=== PATIENT | male | born 1960 | race Hispanic/Latino ===

== ENCOUNTER 2017-06-11 11:07 | Inpatient (IN) | payer MEDICARE, BC ==
--- NOTE | 2017-06-11 12:41 | ED PDOC ---
HPI: Psych/Substance Abuse Time Seen by Provider: 06/11/17 11:24 Chief Complaint (Nursing): Psychiatric Evaluation Chief Complaint (Provider): Psychiatric Evaluation History Per: Patient, EMS History/Exam Limitations: no limitations Onset/Duration Of Symptoms: Persistent Current Symptoms Are (Timing): Still Present Additional Complaint(s): 57 year old male with medical history of CVA, presents to the emergency department for medical clearance to adult psych unit to evaluation depression status post recent cardiac surgery. Patient denied any chest pain, shortness of breath, fever, chills, cough, audio/visual hallucinations, suicidal or homicidal ideation. PMD: Marzena Dudley MD Past Medical History Reviewed: Historical Data, Nursing Documentation, Vital Signs Vital Signs: Last Vital Signs Temp 97.3 F L 06/11/17 11:10 Pulse 79 06/11/17 11:10 Resp 20 06/11/17 11:10 BP 91/58 L 06/11/17 11:10 Pulse Ox 95 06/11/17 11:10 - Medical History PMH: CVA, Depression, Malignancy (stomach CA) - Surgical History Surgical History: Cholecystectomy Other surgeries: cardiac - Family History Family History: States: Unknown Family Hx - Social History Current smoker - smoking cessation education provided: No Ex-Smoker (has not smoked in the last 12 months): No Alcohol: None Drugs: Denies - Home Medications Home Medications: Ambulatory Orders Medication Instructions Recorded Amiodarone [Cordarone] 200 mg PO DAILY 06/11/17 Ascorbic Acid [Vitamin C 250 mg 250 mg PO DAILY 06/11/17 Tab] Famotidine [Pepcid] 20 mg PO Q12 06/11/17 Furosemide [Lasix] 20 mg PO DAILY 06/11/17 Gabapentin [Neurontin] 100 mg PO Q8 06/11/17 Iron Ag,Ps/C/Fa6/B12/Zn/SA/Sto 1 tab PO DAILY 06/11/17 [Niferex Tablet] Metoprolol Tartrate [Lopressor] 12.5 mg PO Q12 06/11/17 Pravastatin Sodium [Pravachol] 40 mg PO HS 06/11/17 Sennosides [Senna Concentrate] 8.6 mg PO HS 06/11/17 Sertraline [Zoloft] 100 mg PO Q12 06/11/17 Tamsulosin [Flomax] 0.4 mg PO HS 06/11/17 - Allergies Allergies/Adverse Reactions: Allergies Allergy/AdvReac Type Severity Reaction Status Date / Time No Known Allergies Allergy Verified 06/11/17 11:10 Review of Systems ROS Statement: Except As Marked, All Systems Reviewed And Found Negative Constitutional: Negative for: Fever, Chills Cardiovascular: Negative for: Chest Pain Respiratory: Negative for: Cough, Shortness of Breath Psych: Positive for: Depression. Negative for: Suicidal ideation (or HI ideation), Other (audio or visual hallucination) Physical Exam - Reviewed Nursing Documentation Reviewed: Yes Vital Signs Reviewed: Yes - Physical Exam Appears: Positive for: Non-toxic, No Acute Distress Head Exam: Positive for: ATRAUMATIC, NORMAL INSPECTION, NORMOCEPHALIC Cardiovascular/Chest: Positive for: Regular Rate, Rhythm, Other (suture in place noted on sterum without any signs of infection) Respiratory: Positive for: Normal Breath Sounds. Negative for: Decreased Breath Sounds, Respiratory Distress Gastrointestinal/Abdominal: Positive for: Normal Exam, Soft. Negative for: Tenderness Extremity: Positive for: Other (atrophy of the lower extremities). Negative for : Normal ROM Neurologic/Psych: Positive for: Alert, Oriented - Laboratory Results Result Diagrams: 06/11/17 13:07 06/11/17 13:07 - ECG O2 Sat by Pulse Oximetry: 95 (RA) Pulse Ox Interpretation: Normal Medical Decision Making Medical Decision Making: Initial Impression: Depression Initial Plan: * EKG * Acetaminophen * Alcohol serum * CMP * Drug screen, urine * Salicylate * CBC * PTT * PT * CXR * UA Time: 1306 --EKG: NSR at 83 BMP. Left axis deviation with first degree AV block. Time: 1312 --CXR FINDINGS: LUNGS: The lungs are well inflated and clear. PLEURA: There is blunting of the left costophrenic angle. No large right pleural effusion. No pneumothorax. CARDIOVASCULAR: There mild cardiomegaly. Status post CABG. Status post aortic valve replacement. OSSEOUS STRUCTURES: No significant abnormalities. VISUALIZED UPPER ABDOMEN: Normal. OTHER FINDINGS: None. IMPRESSION: Blunting of the left costophrenic angle may represent pleural effusion or thickening. No acute findings. Scribe Attestation: Documented by Beverly Ramos, acting as a scribe for Jose Valerio DO. Provider Scribe Attestation: All medical record entries made by the Scribe were at my direction and personally dictated by me. I have reviewed the chart and agree that the record accurately reflects my personal performance of the history, physical exam, medical decision making, and the department course for this patient. I have also personally directed, reviewed, and agree with the discharge instructions and disposition. Spoke to cardiology at [facility] and reviewed patient's recent cardiac surgery. Patient to be on coumadin therapy. Patient is cleared for geropsych admission and medical consult is recommended. Disposition - Clinical Impression Clinical Impression: Depression - Disposition Disposition Time: 13:50 Condition: STABLE
[2017-06-11 13:14] LABS: BASO # 0.1 K/uL (0.0-0.2); BASO % 1.3 % (0.0-2.0); EOS # 0.3 K/uL (0.0-0.7); EOS % 5.3 % (0.0-4.0); HEMOGLOBIN 10.1 g/dL (12.0-18.0); LYMPH # 0.3 K/uL (1.0-4.3); MEAN CELL VOLUME 81.5 fl (80.0-94.0); MEAN CORPUSCULAR HEMOGLOBIN 27.2 pg (27.0-31.0); MEAN CORPUSCULAR HGB CONC 33.4 g/dL (33.0-37.0); MEAN PLATELET VOLUME 8.1 fl (7.2-11.7); MONO # 0.4 K/uL (0.0-0.8); MONO % 7.8 % (0.0-10.0); NEUT # 4.3 K/uL (1.8-7.0); NEUT % 79.6 % (50.0-75.0); NRBC % 0.1 % (0.0-0.0); PLATELET COUNT 293 K/uL (130-400); RED CELL DISTRIBUTION WIDTH 18.4 % (11.5-14.5); WHITE BLOOD COUNT 5.4 K/uL (4.8-10.8)
--- NOTE | 2017-06-11 13:14 | RAD ---
HISTORY: psych eval COMPARISON: No prior. FINDINGS: LUNGS: The lungs are well inflated and clear. PLEURA: There is blunting of the left costophrenic angle. No large right pleural effusion. No pneumothorax. CARDIOVASCULAR: There mild cardiomegaly. Status post CABG. Status post aortic valve replacement. OSSEOUS STRUCTURES: No significant abnormalities. VISUALIZED UPPER ABDOMEN: Normal. OTHER FINDINGS: None. IMPRESSION: Blunting of the left costophrenic angle may represent pleural effusion or thickening. No acute findings.
[2017-06-11 13:22] LABS: INR 1.6 (0.9-1.2); PARTIAL THROMBOPLASTIN TIME 36.5 Seconds (25.6-37.1); PROTHROMBIN TIME 17.4 Seconds (9.8-13.1)
[2017-06-11 13:24] LABS: ALB/GLOB RATIO 0.7 (1.0-2.1); ALBUMIN 2.9 g/dL (3.5-5.0); ALT/SGPT 82 U/L (21-72); AST/SGOT 67 U/L (17-59); BLOOD UREA NITROGEN 10 mg/dl (9-20); CALCIUM 8.9 mg/dL (8.4-10.2); GFR AFRICAN-AMERICAN > 60; GFR NON-AFRICAN AMERICAN > 60
[2017-06-11 13:34] LABS: ACETAMINOPHEN < 10.0 ug/ml (10.0-30.0); SALICYLATE < 1.0 mg/dl
[2017-06-11 14:22] LABS: EOSINOPHIL 7 % (0-7); LYMPHOCYTE 9 % (20-50); MONOCYTE 5 % (0-10); NEUTROPHIL 79 % (42-75); TOTAL CELLS COUNTED 100
[2017-06-11 14:23] LABS: ANISOCYTOSIS SLIGHT; OVALOCYTES SLIGHT; PLATELET ESTIMATE NORMAL (NORMAL)
[2017-06-11 15:41] LABS: SQUAMOUS EPITHIAL < 1 /hpf (0-5); URINE BACTERIA OCC (<OCC); URINE BILIRUBIN NEGATIVE (NEGATIVE); URINE BLOOD LARGE (NEGATIVE); URINE CLARITY CLOUDY (Clear); URINE COLOR YELLOW (YELLOW); URINE GLUCOSE (UA) NEG (Normal); URINE LEUKOCYTE ESTERASE LARGE Leu/uL (Negative); URINE PROTEIN 30 mg/dL (NEGATIVE); URINE UROBILINOGEN 0.2-1.0 mg/dL (0.2-1.0)
[2017-06-11 15:50] LABS: BENZODIAZEPINES, UR NEGATIVE (NEGATIVE)
[2017-06-11 15:51] LABS: BARBITURATES, UR NEGATIVE (NEGATIVE); OPIATES, UR NEGATIVE (NEGATIVE); PHENCYCLIDINE, UR NEGATIVE (NEGATIVE)
[2017-06-11] MEDS ORDERED: Alum-Mag Hydrox-Simethicone Susp (30 mL) PO PRN (17:28)
[2017-06-11] MEDS ORDERED: Bismuth Subsalicylate 262 mg/15 ml Sus (240 ml) PO PRN (17:28)
[2017-06-11] MEDS ORDERED: Magnesium Hydroxide Susp 30 ml UD PO PRN (17:28)
--- NOTE | 2017-06-11 17:58 | PCM.BM ---
<Jose Posada T - Last Filed: 06/11/17 17:55> Treatment Plan Problems - Problems identified on initial assessmt Hopelessness/Helplessness Date Initiated: 06/11/17 Time Initiated: 17:56 Assessment reference: NA Status: Active Treatment assets and liabiliti Patient Assests: adapts well, cooperative, educated, insightful, resourceful Patient Liabilities: physical pain, relationship conflicts, dietary restrictions , medical problems - Milieu Protocol Maintain good personal hygiene: daily Encourage regular showers, daily Remind patient to perform daily oral care, every shift Assist patient to perform ADL's Maintain personal safety: every shift Educate patient to report safety concerns to staff, every shift Monitor environment for contraband/sharps Medication safety: Monitor for expected outcome, potential side effects: every shift, Assess barriers to learning: every shift, Assess readiness for medication education: every shift Family Contact Family contact: Patient agrees to contact Family contact name: Kirk Snyder - Goals for Treatment Patient goals for treatment: wants to stand and take a couple steps <Doris Stanton - Last Filed: 06/12/17 11:00> - Diagnosis (1) Major depressive disorder Status: Acute Interventions: Medication management, Individual and group therapy, Psychoeducation 06/12/17 11:01 <Bernadette Espinal M - Last Filed: 06/12/17 15:30> Family Contact Family contact: Patient agrees to contact, Family has been contacted by patient , Telephone contact initiated by staff, Family meeting planned to review treatment plan Family contact name: Claudio - brother Family contacted how many times per week?: 2 Family contact comment: [phone] - Outside Agency [facility] Agency contact number: Dr. Dafne Grier MD [facility]: Information-sharing Agency contact number: Mis Zepeda, Ph.D [facility]: [employer] Agency contact number: [phone] Discharge/Continuing Care - Education Needs Education Needs: Family Medication, Family Coping Skills, Family Placement options, Family Community resources, Family Activities of Daily Living, Family Uses of Medical Equipment, Family Health Practices/Safety, Family Personal Hygiene/Grooming, Family Aftercare Safety Plan, Patient Medication, Patient Coping Skills, Patient Placement options, Patient Community resources, Patient Activities of Daily Living, Patient Uses of Medical Equipment, Patient Health Practices/Safety, Patient Personal Hygiene/Grooming, Patient Aftercare Safety Plan - Discharge Discharge Criteria: Tolerates medication w/o severe side effects, Free of Suicidal thoughts, Normal sleep pattern, Ability to care for self, Reduction of target symptoms Discharge to:: [facility] - Additional Comments 06/12/17 15:25 Pt seen and discussed in team meeting. Reason for hospitalization reviewed and discussed. Pt reported "it's all a misunderstanding." Pt denied wrapping the call campos cord around his neck/. Pt reported the Tv remote cord was wrapped around his arm and shoulder when he woke up and called the nurse for assistance. Pt reported he then made "a joke about it." Pt denied active SI and HI. Pt reported feelings of depression for 9-12 months due to severe medical issues, divorce after 31 years of marriage, and poor communication with 22 y.o. son. Pt's medical and social issues reviewed. Pt's medications reviewed. Tx plan reviewed and pt is agreeable. Pt provided keno writer / runner with verbal authorization to contact [facility] for additional information and also to determine if pt would be returning tot [facility] post stabilization. Pt also provided keno writer / runner with verbal authorization to contact his outpatient providers (Dr. Marvel MD; Dr. Zepeda, Ph.D; and [facility]). Sw will follow up. - Treatment Team Participation Discussed with Family/SO: Yes Was Patient/Family/SO present at Treatment Team Meeting: Yes
[2017-06-11] MEDS: Pravastatin Sodium 40 MG TAB PO SCH (21:15)
--- NOTE | 2017-06-12 11:35 | CARD ---
APPROVED REPORT EKG Measurement Heart [id number] <Conclusion> Normal sinus rhythm Left axis deviation Abnormal QRS-T angle, consider primary T wave abnormality Prolonged QT Abnormal ECG
--- NOTE | 2017-06-12 12:19 | PCM.PSYCH ---
Initial Psychiatric Evaluation - Initial Psychiatric Evaluation Type of Admission: Voluntary Legal Status: Capacity Chief Complaint (in patient's own words): "I'm depressed." Patient's Reaction to Hospitalization: HPI: 57 yo male w/ h/o depression, presents after he made a comment about tying a cord around his neck to kill himself at [facility]. Patient reports that he was not actually suicidal, but that he made that comment as a joke. He reports that he suffers from chronic depression due to his chronic medical conditions and level of disability. He also reports feeling depressed due to his of 31 years and that he son does not want to be involved in his life. Patient reports that he takes Zoloft, but does not believe it is effective and would like to change medication instead of adding an additional medication to treat his depression. Denies AH/VH/SI/HI. PMHx: CA (esophagus, stomach, gallbladder) s/p radiation and chemotherapy tx, mitral valve replacement and single bypass 1 week ago, kidney stones, h/o diabetes (now improved), CVA (May 2016) w/ L sided weakness, h/o [place], h/o GI bleeds, HTN, HLD PPHx: H/o psychiatric treatment w/ Zoloft and Klonopin and psychotherapy ALL: Latex, PCN SHx: Prior to his surgery, patient was living w/ his brother. , 1 adult son (22 years old). 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 Completed 12th grade. Current Medications: Active Medications Generic Name Dose Route Start Last Admin Trade Name Freq PRN Reason Stop Dose Admin Acetaminophen 650 mg 06/11/17 17:28 06/11/17 20:35 Tylenol 325mg Tab PO 650 mg Q4 PRN Administration Pain, moderate (4-7) Al Hydrox/Mg Hydrox/Simethicone 30 ml 06/11/17 17:28 Maalox Plus 30 Ml PO Q4 PRN Dyspepsia Amiodarone HCl 200 mg 06/12/17 09:00 06/12/17 10:35 Cordarone PO 200 mg DAILY JESSICA Administration Ascorbic Acid 250 mg 06/12/17 09:00 06/12/17 09:02 Vitamin C 250 Mg Tab PO 250 mg DAILY JESSICA Administration Bismuth Subsalicylate 524 mg 06/11/17 17:28 Pepto-Bismol PO Q4 PRN Diarrhea Famotidine 20 mg 06/11/17 21:00 06/12/17 09:01 Pepcid PO 20 mg Q12 JESSICA Administration Furosemide 20 mg 06/12/17 09:00 06/12/17 10:34 Lasix PO Not Given DAILY JESSICA Gabapentin 100 mg 06/12/17 01:00 06/12/17 09:03 Neurontin PO 100 mg Q8 JESSICA Administration Lorazepam 0.5 mg 06/11/17 17:28 Ativan PO 06/25/17 17:29 Q6 PRN Anixety/Agitation Lorazepam 0.5 mg 06/11/17 17:36 Ativan PO HS PRN Insomnia Lorazepam 0.5 mg 06/11/17 17:38 Ativan IM Q6 PRN Agitation Magnesium Hydroxide 30 ml 06/11/17 17:28 Milk Of Magnesia PO HS PRN Constipation Metoprolol Tartrate 12.5 mg 06/11/17 21:00 06/12/17 10:34 Lopressor PO Not Given Q12 [facility] Multivitamins/Minerals 1 tab 06/12/17 09:00 Therapeutic-M Tab PO DAILY [facility] Pravastatin Sodium 40 mg 06/11/17 22:00 06/11/17 21:15 Pravachol PO 40 mg HS [facility] Administration Sennosides 8.6 mg 06/11/17 22:00 06/11/17 21:18 Senokot Tab PO 8.6 mg HS [facility] Administration Sertraline HCl 100 mg 06/12/17 09:00 06/12/17 09:02 Zoloft PO 100 mg DAILY [facility] Administration Tamsulosin HCl 0.4 mg 06/11/17 22:00 06/11/17 21:15 Flomax PO 0.4 mg HS JESSICA Administration Tramadol HCl 25 mg 06/12/17 01:16 Ultram PO Q6 PRN Pain, moderate (4-7) Tramadol HCl 50 mg 06/12/17 01:16 06/12/17 12:07 Ultram PO 50 mg Q6 PRN Administration Pain, severe (8-10) Warfarin Sodium 5 mg 06/12/17 17:00 Coumadin PO 06/12/17 17:01 QD5 JESSICA Protocol Past Psychiatric History - Past Psychiatric History Pertinent Medical Hx (Current Medical&Sleep Prob, Allergies): Allergies Allergy/AdvReac Type Severity Reaction Status Date / Time latex Allergy Mild RASH Verified 06/11/17 18:24 Penicillins Allergy Mild RASH Verified 06/11/17 18:25 Amiodarone [Cordarone] 200 mg PO DAILY 06/11/17 Ascorbic Acid [Vitamin C 250 mg Tab] 250 mg PO DAILY 06/11/17 Famotidine [Pepcid] 20 mg PO Q12 06/11/17 Furosemide [Lasix] 20 mg PO DAILY 06/11/17 Gabapentin [Neurontin] 100 mg PO Q8 06/11/17 Iron Ag,Ps/C/Fa6/B12/Zn/SA/Sto [Niferex Tablet] 1 tab PO DAILY 06/11/17 Metoprolol Tartrate [Lopressor] 12.5 mg PO Q12 06/11/17 Pravastatin Sodium [Pravachol] 40 mg PO HS 06/11/17 Sennosides [Senna Concentrate] 8.6 mg PO HS 06/11/17 Sertraline [Zoloft] 100 mg PO Q12 06/11/17 Tamsulosin [Flomax] 0.4 mg PO HS 06/11/17 traMADol [Ultram] 25 mg PO Q6 PRN 06/12/17 traMADol [Ultram] 50 mg PO Q6 PRN 06/12/17 Review of Systems - Psychiatric Psychiatric: Abnormal Sleep Pattern, Anhedonia, Change in Appetite, Depression, Difficulty Concentrating, Hopelessness, Irritability, Mood Swings Mental Status Examination - Personal Presentation Personal Presentation: Looks older than stated age - Affect Affect: Constricted, Depressed - Motor Activity Motor Activity: Calm - Reliability in Providing Information Reliability in Providing Information: Fair - Speech Speech: Organized - Mood Mood: Depressed - Formal Thought Process Formal Thought Process: No Impairment - Hallucinations/Delusions Additional comments: No AH/VH/paranoia/delusions - Obsessions/Compulsions Obsessions: No Compulsions: No - Cognitive Functions Orientation: Person, Place, Situation, Time Sensorium: Alert Attention/Concentration: Attentive Judgement: Intact, as evidence by: Insight regarding need for hospitalization Memory: Recent intact, as evidence by: Ability to recall events of the day, Remote intact, as evidenced by: Abilit to recall sig. life events, Remote intact , as evidenced by: Ability to recall historical events - Risk Risk: Diminished functioning - Strength & Assets Inventory Strength & Assets Inventory: Cooperative - Limitations Limitations: Other (Unable to walk or care for self due to medical disabilities) DSM 5 DX - DSM 5 DSM 5 Diagnosis: Major Depressive Disorder - Recommended/Plan of Treatment Treatment Recommendations and Plan of Treatment: Major Depressive Disorder -Admit to psychiatry unit -Individual and group therapy -Psychoeducation -Medicine consult -Taper Zoloft and start Effexor -No 1:1 indicated -PT -Disposition planning Projected ELOS: 5-9 days Discharge Plan and Discharge Criteria: Discharge when patient is psychiatrically stable - Smoking Cessation Smoking Cessation Initiated: No Reason for not providing: Not indicated
[2017-06-12] MEDS: Multivitamin With Minerals Tab PO SCH (18:00)
[2017-06-12] MEDS: Pravastatin Sodium 40 MG TAB PO SCH (21:33)
[2017-06-13 08:23] LABS: INR 1.4 (0.9-1.2)
[2017-06-13] MEDS: Venlafaxine 75 mg ER Cap PO SCH (08:42)
[2017-06-13] MEDS: Multivitamin With Minerals Tab PO SCH (08:42)
--- NOTE | 2017-06-13 12:03 | PCM.PYCHPN ---
Psychiatric Progress Note - Psychiatric Progress Note Patient seen today, length of contact: Patient evaluated, case discussed with team, chart reviewed Patient Chief Complaint: "I'm okay." Problems Identified/Issues Discussed: Patient reports that he continues to feel depressed. No acute AH/VH/SI/HI. No paranoia/delusions. Medication Change: Yes (Taper Zoloft) Medical Record Reviewed: Yes Consults ordered or reviewed: Medicine consult Mental Status Examination - Cognitive Function Orientation: Person, Place, Situation, Time Memory: Intact Attention: WNL Concentration: WNL Association: [facility] Fund of Knowledge: [facility] Decription of patient's judgement and insights: Fair I/J - Mood Mood: Depressed - Affect Affect: Constricted, Depressed - Speech Speech: Appropriate - Formal Thought Process Formal Thought Process: No Impairment Psychotic Thoughts and Behaviors: No AH/VH/paranoia/delusions - Suicidal Ideation Suicidal Ideation: No - Homicidal Ideation Homicidal Ideation: No Goal/Treatment Plan - Goal/Treatment Plan Need for Continued Stay: Severe depression anxiety, Discharge may exacerbated symptoms Progress Toward Problem(s) and Goals/Treatment Plan: Major Depressive Disorder -Individual and group therapy -Psychoeducation -Medicine consult -Taper Zoloft and continue Effexor -PT -Disposition planning Estimated Date of D/C: 06/18/17
--- NOTE | 2017-06-13 15:09 | CP.PCM.CON ---
History of Present Illness - History of Present Illness History of Present Illness: CC: Depression This is a 57 year old male with a past medical history of CVA who presented to the ED. The patient recently had mitral valve surgery with CABG x 1 last at [facility]. The patient also has history of CA, GI bleeds, hypertension, and hyperlipidemia. Patient also states that last month he had ureteral stents placed after having bilateral kidney stones. He does not remember if he was told he had a lithotripsy or not. The patient was subsequently admitted to the inpatient psych camara after possible suicidal attempt; though he denies it was a true suicidal attempt. Patient admitting to some bilateral lower back pain similar to the previous time when he had nephrolithiasis. Denies any other current problems at this time. Denies chest pain, shortness of breath, weakness, lethargy, nausea, vomiting, diarrhea, headache, or recent illnesses. Review of Systems - Review of Systems Review of Systems: A 12 point review of systems was conducted and found to be negative other than what was mentioned in the HPI. Past Patient History - Infectious Disease Hx of Infectious Diseases: None - Past Medical History & Family History Past Medical History?: Yes Past Family History: Reviewed and not pertinent - Past Social History Alcohol: None Drugs: Denies - CARDIAC Hx Cardiac Disorders: Yes - NEUROLOGICAL Hx Neurological Disorder: Yes - RENAL Hx Kidney Stones: Yes - HEMATOLOGICAL/ONCOLOGICAL Hx Cancer: Yes Hx Chemotherapy: Yes - MUSCULOSKELETAL/RHEUMATOLOGICAL Hx Falls: No - GASTROINTESTINAL Hx Bowel Surgery: Yes Other/Comment: stomach CA - GENITOURINARY/GYNECOLOGICAL Hx Incontinence: Yes - PSYCHIATRIC Hx Depression: Yes Hx Substance Use: No - SURGICAL HISTORY Hx Cholecystectomy: Yes Meds Allergies/Adverse Reactions: Allergies Allergy/AdvReac Type Severity Reaction Status Date / Time latex Allergy Mild RASH Verified 06/11/17 18:24 Penicillins Allergy Mild RASH Verified 06/11/17 18:25 - Medications Medications: Current Medications Acetaminophen (Tylenol 325mg Tab) 650 mg PO Q4 PRN PRN Reason: Pain, moderate (4-7) Last Admin: 06/11/17 20:35 Dose: 650 mg Al Hydrox/Mg Hydrox/Simethicone (Maalox Plus 30 Ml) 30 ml PO Q4 PRN PRN Reason: Dyspepsia Amiodarone HCl (Cordarone) 200 mg PO DAILY JESSICA Last Admin: 06/12/17 10:35 Dose: 200 mg Ascorbic Acid (Vitamin C 250 Mg Tab) 250 mg PO DAILY [facility] Last Admin: 06/12/17 09:02 Dose: 250 mg Bismuth Subsalicylate (Pepto-Bismol) 524 mg PO Q4 PRN PRN Reason: Diarrhea Famotidine (Pepcid) 20 mg PO Q12 [facility] Last Admin: 06/12/17 09:01 Dose: 20 mg Furosemide (Lasix) 20 mg PO DAILY [facility] Last Admin: 06/12/17 10:34 Dose: Not Given Gabapentin (Neurontin) 100 mg PO Q8 [facility] Last Admin: 06/12/17 09:03 Dose: 100 mg Lorazepam (Ativan) 0.5 mg PO Q6 PRN PRN Reason: Anixety/Agitation Stop: 06/25/17 17:29 Lorazepam (Ativan) 0.5 mg PO HS PRN PRN Reason: Insomnia Lorazepam (Ativan) 0.5 mg IM Q6 PRN PRN Reason: Agitation Magnesium Hydroxide (Milk Of Magnesia) 30 ml PO HS PRN PRN Reason: Constipation Metoprolol Tartrate (Lopressor) 12.5 mg PO Q12 [facility] Last Admin: 06/12/17 10:34 Dose: Not Given Multivitamins/Minerals (Therapeutic-M Tab) 1 tab PO DAILY [facility] Pravastatin Sodium (Pravachol) 40 mg PO HS [facility] Last Admin: 06/11/17 21:15 Dose: 40 mg Sennosides (Senokot Tab) 8.6 mg PO HS [facility] Last Admin: 06/11/17 21:18 Dose: 8.6 mg Sertraline HCl (Zoloft) 100 mg PO DAILY [facility] Last Admin: 06/12/17 09:02 Dose: 100 mg Tamsulosin HCl (Flomax) 0.4 mg PO HS [facility] Last Admin: 06/11/17 21:15 Dose: 0.4 mg Tramadol HCl (Ultram) 25 mg PO Q6 PRN PRN Reason: Pain, moderate (4-7) Tramadol HCl (Ultram) 50 mg PO Q6 PRN PRN Reason: Pain, severe (8-10) Last Admin: 06/12/17 01:21 Dose: 50 mg Warfarin Sodium (Coumadin) 5 mg PO QD5 [facility] PRN Reason: Protocol Stop: 06/12/17 17:01 Physical Exam - Constitutional Additional comments: Physical exam: Constitutional- cooperative, awake, alert Head- NCAT, PERRL Eye- PERRL, EOMI ENT- normal exam, MMM. Neck- normal inspection, supple, no JVD Respiratory- CTAB, no wheezes rales rhonchi Cardiovascular- RRR, +S1, +S2 no MRG GI/Abdominal- normal bowel sounds, soft, no mass, no hsm Skin- warm, dry Extremities Exam- normal capillary refill, normal inspection Neurological Exam- alert, awake, oriented Psych- Forgetful. normal mood, normal affect Results - Vital Signs Recent Vital Signs: Last Vital Signs Temp 97.7 F 06/12/17 05:50 Pulse 75 06/12/17 10:35 Resp 18 06/12/17 05:50 BP 93/51 L 06/12/17 10:35 Pulse Ox 95 06/11/17 16:56 - Labs Result Diagrams: 06/11/17 13:07 06/11/17 13:07 Labs: Laboratory Results - last 24 hr 06/11/17 06/11/17 06/11/17 13:07 13:07 13:07 WBC 5.4 RBC 3.70 L Hgb 10.1 L Hct 30.2 L MCV 81.5 MCH 27.2 MCHC 33.4 RDW 18.4 H Plt Count 293 MPV 8.1 Neut % (Auto) 79.6 H Lymph % (Auto) 6.0 L [place] % (Auto) 7.8 Eos % (Auto) 5.3 H Baso % (Auto) 1.3 Neut # (Auto) 4.3 Lymph # (Auto) 0.3 L [place] # (Auto) 0.4 Eos # (Auto) 0.3 Baso # (Auto) 0.1 Neutrophils % (Manual) 79 H Lymphocytes % (Manual) 9 L Monocytes % (Manual) 5 Eosinophils % (Manual) 7 Platelet Estimate Normal Anisocytosis (manual) Slight Ovalocytes Slight PT INR APTT Sodium 138 Potassium 4.3 Chloride 99 Carbon Dioxide 27 Anion Gap 16 BUN 10 Creatinine 0.6 L Est GFR ( Amer) > 60 Est GFR (Non-Af Amer) > 60 Random Glucose 135 H Calcium 8.9 Total Bilirubin 0.8 AST 67 H ALT 82 H Alkaline Phosphatase 136 H Total Protein 6.9 Albumin 2.9 L Globulin 3.9 Albumin/Globulin Ratio 0.7 L Urine Color Urine Clarity Urine pH Ur Specific [place] Urine Protein Urine Glucose (UA) Urine Ketones Urine Blood Urine Nitrate Urine Bilirubin Urine Urobilinogen Ur Leukocyte Esterase Urine RBC (Auto) Urine Microscopic WBC Ur Squamous Epith Cells Urine Bacteria Salicylates < 1.0 Urine Opiates Screen Urine Methadone Screen Acetaminophen < 10.0 L Ur Barbiturates Screen Ur Phencyclidine Scrn Ur Amphetamines Screen U Benzodiazepines Scrn U Oth Cocaine Metabols U Cannabinoids Screen Alcohol, Quantitative < 10 06/11/17 06/11/17 06/11/17 13:07 15:20 15:20 WBC RBC Hgb Hct MCV MCH MCHC RDW Plt Count MPV Neut % (Auto) Lymph % (Auto) [place] % (Auto) Eos % (Auto) Baso % (Auto) Neut # (Auto) Lymph # (Auto) [place] # (Auto) Eos # (Auto) Baso # (Auto) Neutrophils % (Manual) Lymphocytes % (Manual) Monocytes % (Manual) Eosinophils % (Manual) Platelet Estimate Anisocytosis (manual) Ovalocytes PT 17.4 H INR 1.6 H APTT 36.5 Sodium Potassium Chloride Carbon Dioxide Anion Gap BUN Creatinine Est GFR ( Amer) Est GFR (Non-Af Amer) Random Glucose Calcium Total Bilirubin AST ALT Alkaline Phosphatase Total Protein Albumin Globulin Albumin/Globulin Ratio Urine Color Yellow Urine Clarity Cloudy Urine pH 6.0 Ur Specific [place] 1.006 Urine Protein 30 Urine Glucose (UA) Neg Urine Ketones Negative Urine Blood Large Urine Nitrate Negative Urine Bilirubin Negative Urine Urobilinogen 0.2-1.0 Ur Leukocyte Esterase Large Urine RBC (Auto) 607 H Urine Microscopic WBC 30 H Ur Squamous Epith Cells < 1 Urine Bacteria Occ H Salicylates Urine Opiates Screen Negative Urine Methadone Screen Negative Acetaminophen Ur Barbiturates Screen Negative Ur Phencyclidine Scrn Negative Ur Amphetamines Screen Negative U Benzodiazepines Scrn Negative U Oth Cocaine Metabols Negative U Cannabinoids Screen Negative Alcohol, Quantitative Assessment & Plan - Assessment and Plan (Free Text) Plan: ASSESSMENT/PLAN This is a 57 year old male with multple medical problems as listed below, which is inpatient geropsych after possible suicidal attempt. 1) CAD s/p CABG x 1 with mitral valve replacement at [facility] - Lopressor 12.5 mg po q 12 hours (was on hold for intermittent hypotension, will be restarted in AM) - Pravastatin 40 mg po HS - [facility], will give until INR is therapeutic - Lasix 20 mg po daily - Amiodarone 2) CVA 2016 with residual left sided weakness - Continue Coumadin therapy - Continue Statin 3) Hx recent nephrolithiasis with stent placement - Patient still c/o abdominal pain - CT scan without IV or po contrast to evaluate for nephrolithiasis - Continue Flomax 4) Type 2 DM hx - mild - monitor BS for now 5) GERD - continue Pepcid 20 mg po q 12hours - Maalox PRN 6) Depression with possible suicidal attempt - management as per psychiatry
--- NOTE | 2017-06-13 16:12 | CT ---
PROCEDURE: CT Abdomen and Pelvis without intravenous contrast HISTORY: concern for nephrolithiasis, hx stent placement COMPARISON: None. TECHNIQUE: Technique. Contrast Dose: Radiation dose: Total exam DLP = Total exam DLP = mGy-cm. This CT exam was performed using one or more of the following dose reduction techniques: Automated exposure control, adjustment of the mA and/or kV according to patient size, and/or use of iterative reconstruction technique. FINDINGS: LOWER THORAX: Incompletely visualize cardiomegaly and pericardial effusion. Trace bilateral pleural effusions. LIVER: Unremarkable. No gross lesion or ductal dilatation. GALLBLADDER AND BILE DUCTS: Unremarkable. PANCREAS: Unremarkable. No gross lesion or ductal dilatation. SPLEEN: Unremarkable. ADRENALS: Unremarkable. No mass. KIDNEYS AND URETERS: Bilateral double-J stent catheters identified. There is persistent right hydronephrosis and very mild left hydronephrosis. There multiple left renal calculi. Adjacent to the proximal aspect of the left double-J stent within the left renal pelvis is an additional 0.8 x 1.7 cm calculus. Additional upper tract calculi are numerous and smaller identified in the right collecting system. VASCULATURE: IVC filter identified. No aortic aneurysm. BOWEL: Constipation without fecal impaction or obstruction. APPENDIX: Unremarkable. Normal appendix. PERITONEUM: Unremarkable. No free fluid. No free air. LYMPH NODES: Unremarkable. No enlarged lymph nodes. BLADDER: Distal aspects of the double-J stent catheters identified. Air-fluid level noted in the urinary bladder. Featureless urinary bladder wall Tiny calculi layer in the urinary bladder adjacent to left ureterovesical junction. REPRODUCTIVE: Unremarkable with the exception of small incompletely visualized left hydrocele. BONES: No acute fracture. OTHER FINDINGS: None. IMPRESSION: Bilateral upper tract calculus disease. Distention of the right collecting system despite the presence of the double-J stent catheter. Persistent left hydronephrosis. Solitary proximal left ureteral calculus. Multiple bladder calculi. Additional benign and/or incidental findings described above.
[2017-06-13] MEDS: Pravastatin Sodium 40 MG TAB PO SCH (21:27)
[2017-06-14 05:56] VITALS: O2SAT 100
[2017-06-14 08:07] LABS: INR 1.8 (0.9-1.2); PROTHROMBIN TIME 20.4 Seconds (9.8-13.1)
[2017-06-14] MEDS: Multivitamin With Minerals Tab PO SCH (09:39)
[2017-06-14] MEDS: Venlafaxine 75 mg ER Cap PO SCH (10:45)
[2017-06-14] MEDS: Sodium Chloride 0.9% 1,000 ML IV SCH (10:46)
--- NOTE | 2017-06-14 12:45 | PCM.PYCHPN ---
Psychiatric Progress Note - Psychiatric Progress Note Patient seen today, length of contact: Patient evaluated, case discussed with team, chart reviewed Patient Chief Complaint: "I'm okay." Problems Identified/Issues Discussed: Patient reports that he continues to feel depressed. No acute AH/VH/SI/HI. No paranoia/delusions. No adverse effects to Effexor reported. Medication Change: Yes (Stop Zoloft) Medical Record Reviewed: Yes Consults ordered or reviewed: Medicine consult, Wound care Mental Status Examination - Cognitive Function Orientation: Person, Place, Situation, Time Memory: Intact Attention: WNL Concentration: WNL Association: WN Fund of Knowledge: [facility] Decription of patient's judgement and insights: Fair I/J - Mood Mood: Depressed - Affect Affect: Constricted, Depressed - Speech Speech: Appropriate - Formal Thought Process Formal Thought Process: No Impairment Psychotic Thoughts and Behaviors: No AH/VH/paranoia/delusions - Suicidal Ideation Suicidal Ideation: No - Homicidal Ideation Homicidal Ideation: No Goal/Treatment Plan - Goal/Treatment Plan Need for Continued Stay: Severe depression anxiety, Discharge may exacerbated symptoms Progress Toward Problem(s) and Goals/Treatment Plan: Major Depressive Disorder -Individual and group therapy -Psychoeducation -Medicine consult -Stop Zoloft and continue Effexor -PT -Disposition planning Estimated Date of D/C: 06/19/17
[2017-06-14] MEDS: Pravastatin Sodium 40 MG TAB PO SCH (21:11)
--- NOTE | 2017-06-14 22:01 | CON ---
COMPREHENSIVE UROLOGIC CONSULTATION DATE: HISTORY OF PRESENT ILLNESS: The patient admitted to the psychiatric camara for treatment of depression. The patient is status post cystoscopy with insertion of bilateral ureteral stents for obstructive uropathy at [facility] in [place] and immediately after this procedure, the patient underwent open heart surgery, which was 2 weeks ago. The patient also has a history of massive obesity in the past not currently and at that time had diabetes mellitus. He also was status post stroke and currently with left-sided residual weakness and the patient's mood disorder during this admission has stabilized. PAST ALLERGIC HISTORY: THE PATIENT IS ALLERGIC TO PENICILLIN AND LATEX. SOCIAL HISTORY: He is currently a nonsmoker and no history of any alcohol use at this time. Abdominopelvic CT done on 06/13/2017 showed bilateral double J stent catheters identified in the kidneys and ureters. Adrenals were unremarkable. No mass. There is persistent right hydronephrosis and very mild left hydronephrosis. There are multiple left renal calculi adjacent to the proximal aspect of the left double J stent within the left renal pelvis as an additional 0.8 x 1.7 cm calculus. Additional upper tract calculi are numerous and smaller identified in the right collecting system. The urinary bladder showed the distal aspects of the double J stent catheters identified and air fluid level noted in the urinary bladder. The patient currently is voiding with his usual normal urinary stream. He currently has no dysuria, gross hematuria, renal colic, or abdominal pain. PHYSICAL EXAMINATION: GENERAL: The patient is a well-developed and well-nourished, currently not obese white male. He is alert and he is oriented. HEENT: Grossly within normal limits. NECK: Supple. Thyroid is nonpalpable. ABDOMEN: Currently soft, not distended or tender. No CVA tenderness. No suprapubic tenderness. LABORATORY DATA: Urine culture and sensitivity was positive for Gram-negative rods. CBC on 06/11/2017 shows a WBC count of 5.4, hemoglobin of 10.1, hematocrit of 30.2 with a platelet count of 293,000. Coag profile shows a PT of 17.4 on 06/11/2017 and today his PT on 06/14/2017 was 20.4. His INR on 06/11/2017 was 1.6 and today 06/14/2017 is 1.8. His PTT was 36.5 on 06/11/2017. His chem profile shows a sodium of 138, potassium 4.3, chloride 99, CO2 of 27, BUN and creatinine of 10 and 0.6 respectively with a GFR of greater than 60. Random glucose is 135, calcium 8.9, total bilirubin 0.8, AST 67, ALT 82 both elevated, and alkaline phosphatase 136. Urinalysis on 06/11/2017 showed color was yellow, Clarity was cloudy, pH is 6.0, specific gravity 1.006, protein 30, glucose negative, ketones negative, blood large, nitrite negative, bilirubin negative, urobilinogen 0.2 to 1, and leukocyte esterase large. There was 607 RBCs and 30 WBCs with occasional bacteria per high-power field. DIAGNOSTIC IMPRESSION: 1. Bilateral renal calculi. 2. Bilateral hydronephrosis. 3. Bilateral ureteral stents. 4. Microscopic hematuria. 5. Urinary tract infection with Gram-negative rods. PLAN: Check the cultures and sensitivities for the Gram-negative rods in the urine and start the patient on oral antibiotic, which cannot include any of the penicillins. The patient could be seen in followup at [facility] with his urologist there regarding the next phase of his treatment. Amauri Ziegler MD MTDD
[2017-06-15] MEDS: Sodium Chloride 0.9% 1,000 ML IV SCH (00:30)
[2017-06-15 08:08] LABS: INR 2.4 (0.9-1.2); PROTHROMBIN TIME 27.5 Seconds (9.8-13.1)
[2017-06-15] MEDS: Venlafaxine 75 mg ER Cap PO SCH (09:03)
[2017-06-15] MEDS: Multivitamin With Minerals Tab PO SCH (09:04)
--- NOTE | 2017-06-15 12:01 | PCM.PYCHPN ---
Psychiatric Progress Note - Psychiatric Progress Note Patient seen today, length of contact: Patient evaluated, case discussed with team, chart reviewed Patient Chief Complaint: "I'm okay." Problems Identified/Issues Discussed: Patient reports that he continues to feel depressed, but states that his mood is starting to improve. No acute AH/VH/SI/HI. No paranoia/delusions. No adverse effects to Effexor reported. Medication Change: No Medical Record Reviewed: Yes Consults ordered or reviewed: Medicine consult, Wound care Mental Status Examination - Cognitive Function Orientation: Person, Place, Situation, Time Memory: Intact Attention: WNL Concentration: WNL Association: [facility] Fund of Knowledge: [facility] Decription of patient's judgement and insights: Fair I/J - Mood Mood: Depressed - Affect Affect: Constricted, Depressed - Speech Speech: Appropriate - Formal Thought Process Formal Thought Process: No Impairment Psychotic Thoughts and Behaviors: No AH/VH/paranoia/delusions - Suicidal Ideation Suicidal Ideation: No - Homicidal Ideation Homicidal Ideation: No Goal/Treatment Plan - Goal/Treatment Plan Need for Continued Stay: Severe depression anxiety, Discharge may exacerbated symptoms Progress Toward Problem(s) and Goals/Treatment Plan: Major Depressive Disorder -Individual and group therapy -Psychoeducation -Medicine consult -Continue Effexor -PT -Disposition planning Estimated Date of D/C: 06/19/17
[2017-06-15] MEDS: Pravastatin Sodium 40 MG TAB PO SCH (21:09)
[2017-06-16 06:18] VITALS: RESP 19
[2017-06-16 08:12] LABS: INR 3.1 (0.9-1.2); PROTHROMBIN TIME 35.7 Seconds (9.8-13.1)
[2017-06-16] MEDS: Venlafaxine 75 mg ER Cap PO SCH (08:45)
[2017-06-16] MEDS: Multivitamin With Minerals Tab PO SCH (08:53)
--- NOTE | 2017-06-16 14:18 | PCM.PYCHPN ---
Psychiatric Progress Note - Psychiatric Progress Note Patient seen today, length of contact: Patient evaluated, case discussed with team, chart reviewed Patient Chief Complaint: "I'm okay." Problems Identified/Issues Discussed: No significant events overnight. Patient reports that he continues to feel depressed, but states that his mood is improving. No acute AH/VH/SI/HI. No paranoia/delusions. No adverse effects to Effexor reported. Medication Change: No Medical Record Reviewed: Yes Consults ordered or reviewed: Medicine consult, Wound care Mental Status Examination - Cognitive Function Orientation: Person, Place, Situation, Time Memory: Intact Attention: WNL Concentration: WNL Association: [facility] Fund of Knowledge: [facility] Decription of patient's judgement and insights: Fair I/J - Mood Mood: Depressed - Affect Affect: Constricted, Depressed - Speech Speech: Appropriate - Formal Thought Process Formal Thought Process: No Impairment Psychotic Thoughts and Behaviors: No AH/VH/paranoia/delusions - Suicidal Ideation Suicidal Ideation: No - Homicidal Ideation Homicidal Ideation: No Goal/Treatment Plan - Goal/Treatment Plan Need for Continued Stay: Severe depression anxiety, Discharge may exacerbated symptoms Progress Toward Problem(s) and Goals/Treatment Plan: Major Depressive Disorder -Individual and group therapy -Psychoeducation -Medicine consult -Continue Effexor -PT -Disposition planning Estimated Date of D/C: 06/19/17
[2017-06-16] MEDS: Pravastatin Sodium 40 MG TAB PO SCH (21:11)
[2017-06-16] MEDS: Ciprofloxacin 400mg/200ml D5W 400 MG/200 ML BAG IVPB SCH (21:13)
[2017-06-17 07:39] LABS: PROTHROMBIN TIME 33.5 Seconds (9.8-13.1)
[2017-06-17] MEDS: Ciprofloxacin 400mg/200ml D5W 400 MG/200 ML BAG IVPB SCH (08:52)
[2017-06-17] MEDS: Venlafaxine 75 mg ER Cap PO SCH (08:53)
[2017-06-17] MEDS: Multivitamin With Minerals Tab PO SCH (08:54)
--- NOTE | 2017-06-17 10:43 | PCM.PYCHPN ---
Psychiatric Progress Note - Psychiatric Progress Note Patient seen today, length of contact: Patient evaluated, case discussed with team, chart reviewed Patient Chief Complaint: "I'm okay." Problems Identified/Issues Discussed: Patient reports that his mood is improving. No behavioral issues. No suicidal ideation/plan/intent. No AH/VH/paranoia/delusions. No adverse effects to Effexor reported. Patient continues to be treated for UTI. Medication Change: No Medical Record Reviewed: Yes Consults ordered or reviewed: Medicine consult, Wound care, Urology consult Mental Status Examination - Cognitive Function Orientation: Person, Place, Situation, Time Memory: Intact Attention: WNL Concentration: WNL Association: WNL Fund of Knowledge: [facility] Decription of patient's judgement and insights: Fair I/J - Mood Mood: Neutral - Affect Affect: Broad - Speech Speech: Appropriate - Formal Thought Process Formal Thought Process: No Impairment Psychotic Thoughts and Behaviors: No AH/VH/paranoia/delusions - Suicidal Ideation Suicidal Ideation: No - Homicidal Ideation Homicidal Ideation: No Goal/Treatment Plan - Goal/Treatment Plan Need for Continued Stay: Discharge may exacerbated symptoms Progress Toward Problem(s) and Goals/Treatment Plan: Major Depressive Disorder; patient is not an acute danger to self or others. He is psychiatrically stable for referral to rehabilitation services. -Individual and group therapy -Psychoeducation -Medicine consult, Urology consult, Wound care consult -Continue Effexor 75 mg PO Daily -PT -Disposition planning Estimated Date of D/C: 06/19/17
--- NOTE | 2017-06-17 10:48 | CP.PCM.CON ---
History of Present Illness - History of Present Illness History of Present Illness: Infectious Disease Consultation Note- Asked to see this patient at the request of the hospitalist for ESBL e.coli UTI. HPI- Patient is a 57 year old male with PMH of CVA with left side weakness, HTN, HLD recent AVR and CABG x 1 surgery at [facility] and also a month ago he had b/l ureteral stents placed for nephrolithiasis and hydronephrosis who was at cardiac rehab but was admitted to [facility] here for depression/? suicidal Ideation. Patient currently denies any fever or chills or any abdominal pain. He does c/o mild dysurea for past few days. denies any back pain. pt. states he is supposed to f/u with his urologist to see when the ureteral stents should be removed. I'm asked to see the patient because he had Urine cx done here and grew ESBl E.coli. Patient explains he has PCN allergy, got itchy rash as a child, denies any trouble breathing or swallowing on it. Review of Systems - Review of Systems Review of Systems: ROS- denies any fever or chills, denies any QUINONEZ, denies any cough, denies any sob , denies any chest pain, denies any abd. pain, + dysurea, denies any back pain has B/L ureteral stent placed few weeks ago . denies any N/V. Denies any diarrhea Past Patient History - Infectious Disease Hx of Infectious Diseases: None - Past Medical History & Family History Past Medical History?: Yes Past Family History: Reviewed and not pertinent - Past Social History Alcohol: None Drugs: Denies - CARDIAC Hx Cardiac Disorders: Yes - NEUROLOGICAL Hx Neurological Disorder: Yes - RENAL Hx Kidney Stones: Yes - MUSCULOSKELETAL/RHEUMATOLOGICAL Hx Falls: No - GASTROINTESTINAL Hx Bowel Surgery: Yes Other/Comment: stomach CA - GENITOURINARY/GYNECOLOGICAL Hx Incontinence: Yes - PSYCHIATRIC Hx Depression: Yes Hx Substance Use: No - SURGICAL HISTORY Hx Cholecystectomy: Yes Meds Allergies/Adverse Reactions: Allergies Allergy/AdvReac Type Severity Reaction Status Date / Time latex Allergy Mild RASH Verified 06/11/17 18:24 Penicillins Allergy Mild RASH Verified 06/11/17 18:25 - Medications Medications: Current Medications Acetaminophen (Tylenol 325mg Tab) 650 mg PO Q4 PRN PRN Reason: Pain, moderate (4-7) Last Admin: 06/11/17 20:35 Dose: 650 mg Al Hydrox/Mg Hydrox/Simethicone (Maalox Plus 30 Ml) 30 ml PO Q4 PRN PRN Reason: Dyspepsia Amiodarone HCl (Cordarone) 200 mg PO DAILY [facility] Last Admin: 06/16/17 08:49 Dose: 200 mg Ascorbic Acid (Vitamin C 250 Mg Tab) 250 mg PO DAILY [facility] Last Admin: 06/17/17 08:54 Dose: 250 mg Bismuth Subsalicylate (Pepto-Bismol) 524 mg PO Q4 PRN PRN Reason: Diarrhea Clonazepam (Klonopin) 0.5 mg PO Q12 PRN PRN Reason: Anxiety Famotidine (Pepcid) 20 mg PO Q12 [facility] Last Admin: 06/17/17 08:53 Dose: 20 mg Furosemide (Lasix) 20 mg PO DAILY [facility] Last Admin: 06/16/17 08:50 Dose: 20 mg Gabapentin (Neurontin) 100 mg PO Q8 [facility] Last Admin: 06/17/17 08:53 Dose: 100 mg Ciprofloxacin (Cipro 400mg/200ml Dsw) 400 mg in 200 mls @ 200 mls/hr IVPB Q12 [facility] PRN Reason: Protocol Last Admin: 06/17/17 08:52 Dose: 200 mls/hr Magnesium Hydroxide (Milk Of Magnesia) 30 ml PO HS PRN PRN Reason: Constipation Metoprolol Tartrate (Lopressor) 12.5 mg PO Q12 [facility] Last Admin: 06/17/17 08:54 Dose: 12.5 mg Multivitamins/Minerals (Therapeutic-M Tab) 1 tab PO DAILY [facility] Last Admin: 06/17/17 08:54 Dose: 1 tab Pravastatin Sodium (Pravachol) 40 mg PO HS [facility] Last Admin: 06/16/17 21:11 Dose: 40 mg Sennosides (Senokot Tab) 8.6 mg PO HS [facility] Last Admin: 06/16/17 21:11 Dose: 8.6 mg Tamsulosin HCl (Flomax) 0.4 mg PO HS [facility] Last Admin: 06/16/17 21:12 Dose: 0.4 mg Tramadol HCl (Ultram) 25 mg PO Q6 PRN PRN Reason: Pain, moderate (4-7) Tramadol HCl (Ultram) 50 mg PO Q6 PRN PRN Reason: Pain, severe (8-10) Last Admin: 06/16/17 18:51 Dose: 50 mg Venlafaxine HCl (Effexor Xr) 75 mg PO DAILY [facility] Last Admin: 06/17/17 08:53 Dose: 75 mg Warfarin Sodium (Coumadin) 5 mg PO QD5 JESSICA PRN Reason: Protocol Stop: 06/17/17 17:01 Physical Exam - Constitutional Appears: Non-toxic, No Acute Distress - Head Exam Head Exam: ATRAUMATIC - Eye Exam Eye Exam: EOMI, PERRL - ENT Exam ENT Exam: Normal Oropharynx - Neck Exam Neck exam: Positive for: Full Rom - Respiratory Exam Respiratory Exam: Clear to Auscultation Bilateral, NORMAL BREATHING PATTERN - Cardiovascular Exam Cardiovascular Exam: RRR, +S1, +S2 Additional comments: Mid-sternal surgical scar dry/intact no discharge minimal erythema on the upper portion only no tenderness - GI/Abdominal Exam GI & Abdominal Exam: Normal Bowel Sounds, Soft Additional comments: NT, ND No CVA tenderenss b/l - Extremities Exam Extremities exam: Positive for: normal inspection - Neurological Exam Neurological exam: Alert, Oriented x3 Additional comments: left sided weakness in the LE ( chronic as per patient) Results - Vital Signs Recent Vital Signs: Last Vital Signs Temp 97.3 F L 06/17/17 06:00 Pulse 69 06/17/17 08:55 Resp 19 06/17/17 06:00 BP 112/73 06/17/17 08:55 Pulse Ox 100 06/16/17 06:00 - Labs Result Diagrams: 06/11/17 13:07 06/11/17 13:07 Labs: Laboratory Results - last 24 hr 06/17/17 06:10 PT 33.5 H INR 3.0 H Laboratory Results - last 72 hr 06/15/17 06/16/17 06/17/17 07:30 06:20 06:10 PT 27.5 H D 35.7 H D 33.5 H INR 2.4 H D 3.1 H 3.0 H Microbiology 06/13/17 17:35 Urine Urine Culture - Final Escherichia Coli Accession No. : [id number] Patient Name / ID : ROSA ROSENTHAL / [id number] Exam Date : 06/13/2017 14:08:03 ( Approved ) Study Comment : Sex / Age : M / 57Y Creator : Dionte Gasca MD Dictator : Dionte Gasca MD Content Development Manager : Windows Software Developer : Dionte Gasca MD Approver2 : Report Date : 06/13/2017 16:06:17 My Comment : PROCEDURE: CT Abdomen and Pelvis without intravenous contrast HISTORY: concern for nephrolithiasis, hx stent placement COMPARISON: None. TECHNIQUE: Technique. Contrast Dose: Radiation dose: Total exam DLP = Total exam DLP = mGy-cm. This CT exam was performed using one or more of the following dose reduction techniques: Automated exposure control, adjustment of the mA and/or kV according to patient size, and/or use of iterative reconstruction technique. FINDINGS: LOWER THORAX: Incompletely visualize cardiomegaly and pericardial effusion. Trace bilateral pleural effusions. LIVER: Unremarkable. No gross lesion or ductal dilatation. GALLBLADDER AND BILE DUCTS: Unremarkable. PANCREAS: Unremarkable. No gross lesion or ductal dilatation. SPLEEN: Unremarkable. ADRENALS: Unremarkable. No mass. KIDNEYS AND URETERS: Bilateral double-J stent catheters identified. There is persistent right hydronephrosis and very mild left hydronephrosis. There multiple left renal calculi. Adjacent to the proximal aspect of the left double-J stent within the left renal pelvis is an additional 0.8 x 1.7 cm calculus. Additional upper tract calculi are numerous and smaller identified in the right collecting system. VASCULATURE: IVC filter identified. No aortic aneurysm. BOWEL: Constipation without fecal impaction or obstruction. APPENDIX: Unremarkable. Normal appendix. PERITONEUM: Unremarkable. No free fluid. No free air. LYMPH NODES: Unremarkable. No enlarged lymph nodes. BLADDER: Distal aspects of the double-J stent catheters identified. Air-fluid level noted in the urinary bladder. Featureless urinary bladder wall Tiny calculi layer in the urinary bladder adjacent to left ureterovesical junction. REPRODUCTIVE: Unremarkable with the exception of small incompletely visualized left hydrocele. BONES: No acute fracture. OTHER FINDINGS: None. IMPRESSION: Bilateral upper tract calculus disease. Distention of the right collecting system despite the presence of the double-J stent catheter. Persistent left hydronephrosis. Solitary proximal left ureteral calculus. Multiple bladder calculi. Additional benign and/or incidental findings described above. Accession No. : [id number] Patient Name / ID : ROSA ROSENTHAL / [id number] Exam Date : 06/11/2017 12:12:39 ( Approved ) Study Comment : Sex / Age : M / 57Y Creator : Marlene Ayala MD Dictator : Marlene Ayala MD Content Development Manager : Windows Software Developer : Marlene Ayala MD Approver2 : Report Date : 06/11/2017 13:12:48 My Comment : HISTORY: psych eval COMPARISON: No prior. FINDINGS: LUNGS: The lungs are well inflated and clear. PLEURA: There is blunting of the left costophrenic angle. No large right pleural effusion. No pneumothorax. CARDIOVASCULAR: There mild cardiomegaly. Status post CABG. Status post aortic valve replacement. OSSEOUS STRUCTURES: No significant abnormalities. VISUALIZED UPPER ABDOMEN: Normal. OTHER FINDINGS: None. IMPRESSION: Blunting of the left costophrenic angle may represent pleural effusion or thickening. No acute findings. Assessment & Plan (1) Retained ureteral stent Status: Acute (2) Infection due to ESBL-producing Escherichia coli Status: Acute (3) UTI (urinary tract infection) Status: Acute (4) Aortic valve replaced Status: Acute (5) S/P CABG x 1 Status: Acute - Assessment and Plan (Free Text) Assessment: A/P- 57 year old male with b/l ureteral stent , s/p recent AVR and CABG now found to have ESBL e.coli UTI. afebrile emilio;l WBC count UA- large LE urine cx- ESBL E.coli plan- in light of recent AVR and CABG and the fact that pt. has foreign body ( ureteral stent ) with ESBL UTI and dysurea advise to treat this with ertapenem . advised pt. very low risk of cross sensitivity since it is a carbapenem , however, advised pt. if he develops any itching or rash or trouble with breathing to immediately notify the nurse. also d/w pt's nurse at length to observe him closely while giving the first dose of the ertapenem and if any reaction to d/c ertapenem nd notify me or the hospitalist. also advise to give patient vancomycin since he had recent CABG and AVR and slight erythema on the upper portion of the sternotomy site. keep vacno trough <15. advise evaluation as well. All above d/w patient at length and he verbalizes full understanding of all above and agrees with above plan of care. Thank you for allowing me to take part in the care of this patient.
--- NOTE | 2017-06-17 13:37 | PN ---
DATE: 06/17/2017 FOLLOWUP NOTE TIME OF FOLLOWUP: Roughly 11:55 a.m. SUBJECTIVE: The patient is resting relatively comfortably today with minimal complaint of pain. His urine culture came back positive for E. coli ESBL that is sensitive to Cipro and the patient was started on Cipro. It is also sensitive to meropenem and ertapenem. PHYSICAL EXAMINATION: ABDOMEN: Soft, not distended but tender. No CVA tenderness, no suprapubic tenderness at this time. DIAGNOSTIC IMPRESSION: To this patient is: 1. Escherichia coli, urinary tract infection. 2. Bilateral kidney stones. 3. Bilateral ureteral stents. 4. Status post open heart surgery. PLAN: Continue the patient on Cipro and can be discharged home on Cipro for 10 days. The patient could be seen in follow up at [facility] with his urologist and scheduled for the next days of his treatment for kidney stones. Amauri Ziegler MD
[2017-06-17] MEDS: Pravastatin Sodium 40 MG TAB PO SCH (21:15)
[2017-06-18 06:03] VITALS: BP 114/68; PULSE 66; TEMP 97.5
[2017-06-18 07:01] LABS: INR 2.5 (0.9-1.2); PROTHROMBIN TIME 27.7 Seconds (9.8-13.1)
[2017-06-18] MEDS: Venlafaxine 75 mg ER Cap PO SCH (08:32)
[2017-06-18] MEDS: Multivitamin With Minerals Tab PO SCH (08:35)
--- NOTE | 2017-06-18 13:17 | PCM.PYCHDC ---
Mental Status Examination - Mental Status Examination Orientation: Person, Place, Situation, Time Memory: Intact Mood: Neutral Affect: Broad Speech: Appropriate Attention: WNL Concentration: WNL Association: WNL Fund of Knowledge: WNL Formal Thought Process: No Impairment Description of patient's judgement and insight: Fair I/J Psychotic Thoughts and Behaviors: No AH/VH/paranoia/delusions Suicidal Ideation: No Current Homicidal Ideation?: No Discharge Summary - Discharge Note Reason for Hospitalization: HPI: 57 yo male w/ h/o depression, presents after he made a comment about tying a cord around his neck to kill himself at [facility]. Patient reports that he was not actually suicidal, but that he made that comment as a joke. He reports that he suffers from chronic depression due to his chronic medical conditions and level of disability. He also reports feeling depressed due to his of 31 years and that he son does not want to be involved in his life. Patient reports that he takes Zoloft, but does not believe it is effective and would like to change medication instead of adding an additional medication to treat his depression. Denies AH/VH/SI/HI. PMHx: CA (esophagus, stomach, gallbladder) s/p radiation and chemotherapy tx, mitral valve replacement and single bypass 1 week ago, kidney stones, h/o diabetes (now improved), CVA (May 2016) w/ L sided weakness, h/o GA, h/o GI bleeds, HTN, HLD PPHx: H/o psychiatric treatment w/ Zoloft and Klonopin and psychotherapy ALL: Latex, PCN SHx: Prior to his surgery, patient was living w/ his brother. , 1 adult son (22 years old). 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 Completed 12th grade. Laboratory Data: Abnormal Lab Results 06/18/17 05:30 PT 27.7 H D INR 2.5 H D Consultations:: List each consultation separately and include: 1. Reason for request. 2. Findings. 3. Follow-up Consultations: Medicine consult, Wound care Infectious Disease Consult: Assessment & Plan (1) Retained ureteral stent Status: Acute (2) Infection due to ESBL-producing Escherichia coli Status: Acute (3) UTI (urinary tract infection) Status: Acute (4) Aortic valve replaced Status: Acute (5) S/P CABG x 1 Status: Acute - Assessment and Plan (Free Text) Assessment: A/P- 57 year old male with b/l ureteral stent , s/p recent AVR and CABG now found to have ESBL e.coli UTI. afebrile emilio;l WBC count UA- large LE urine cx- ESBL E.coli plan- in light of recent AVR and CABG and the fact that pt. has foreign body ( ureteral stent ) with ESBL UTI and dysurea advise to treat this with ertapenem . advised pt. very low risk of cross sensitivity since it is a carbapenem , however, advised pt. if he develops any itching or rash or trouble with breathing to immediately notify the nurse. also d/w pt's nurse at length to observe him closely while giving the first dose of the ertapenem and if any reaction to d/c ertapenem nd notify me or the hospitalist. also advise to give patient vancomycin since he had recent CABG and AVR and slight erythema on the upper portion of the sternotomy site. keep vacno trough <15. advise evaluation as well. Summary of Hospital Course include:: 1. Description of specific treatment plan utilized for patients during their course of treatmen. 2. Summarize the time- course for resolution of acute symptoms and/or regressed behaviors. 3. Describe issues identified and worked on during hospitalization. 4. Describe medication utilized. 5. Describe medical problems identified and treated. 6. Reassessment of suicide risk Summary of Hospital Course: Patient was admitted to the psychiatry unit. Individual and group therapy were provided. Patient was tapered off of Zoloft and stabilized on Effexor XR 75 mg PO Daily. He reports improvement in mood and denies current SI. He is psychiatrically stable for discharge at this time. - Diagnosis (1) Major depressive disorder Current Visit: Yes Status: Chronic - Final Diagnosis (DSM 5) Condition upon Discharge: STABLE DSM 5: Major Depressive Disorder Disposition: TRANSF TO SNF Follow-up Treatment Plan: Major Depressive Disorder; patient is not an acute danger to self or others. He is psychiatrically stable for discharge. -Individual and group therapy -Psychoeducation -Medicine consult, Infectious Disease consult, Wound care consult -Continue Effexor 75 mg PO Daily -Vancomycin HCL 750 mg IV Daily x 5 days; follow-up Vancomycin trough level -Ertapenem 1 GM IV x 7 days -Patient should be evaluated by Infectious Disease specialist at rehabilitation Prescriptions/Medication Reconciliation: Ertapenem 1gm in NS 50ml [Invanz] 1 gm IV DAILY #7 bag Vancomycin 750mg [Vancomycin 750 mg in NS] 750 mg IV DAILY #5 bag - Smoking Cessation Smoking Cessation Medication prescribed: No Reason for not providing: Not indicated - Antipsychotic Medications Pt discharged on 2 or more routine antipsychotic medications: No
== END 2017-06-18 13:38 | DRG 881 ==
LOC: H.ER 11:07 → H.STEP 15:33
PROVIDERS: ADMIT Psychiatry & Neurology Psychiatry; ATTEND Psychiatry & Neurology Psychiatry
PROC: GZHZZZZ Group Psychotherapy (ICD-10-PCS; principal; 2017-06-11)
DX: F32.9 Major depressive disorder, single episode, unspecified (principal); I69.354 Hemiplegia and hemiparesis following cerebral infarction affecting left non-dominant side; N13.6 Pyonephrosis; I25.10 Atherosclerotic heart disease of native coronary artery without angina pectoris; Z95.1 Presence of aortocoronary bypass graft; Z95.2 Presence of prosthetic heart valve; Z85.028 Personal history of other malignant neoplasm of stomach; E11.9 Type 2 diabetes mellitus without complications; K21.9 Gastro-esophageal reflux disease without esophagitis; Z88.0 Allergy status to penicillin; Z91.040 Latex allergy status; R31.29 Other microscopic hematuria; B96.20 Unspecified Escherichia coli [E. coli] as the cause of diseases classified elsewhere; E78.5 Hyperlipidemia, unspecified; I10 Essential (primary) hypertension; Z16.12 Extended spectrum beta lactamase (ESBL) resistance; N21.0 Calculus in bladder